=== PATIENT | female | born 1975 | race Hispanic/Latino ===

== ENCOUNTER 2024-01-17 16:57 | Emergency (ER) | payer BC ==
[~2024-01-17] VITALS: Ht 172.7 cm; Wt 136.1 kg
[2024-01-17] MEDS: ketOROlac 30MG VIAL (30MG/ML) IM ONE (17:23)
[2024-01-17] MEDS ORDERED: KETO10TA2 PO (18:14)
[2024-01-17] MEDS ORDERED: CYCL10TA16 PO (18:14)
[2024-01-17 18:23] VITALS: BP 144/78; PULSE 69; RESP 18; TEMP 97.7; O2SAT 98
== END 2024-01-17 18:25 | disposition home or self-care (01) ==
LOC: EDH 16:57
DX: M79.621 Pain in right upper arm (principal); Z79.899 Other long term (current) drug therapy; W18.39XA Other fall on same level, initial encounter; Y93.89 Activity, other specified; Y92.89 Other specified places as the place of occurrence of the external cause; Y99.8 Other external cause status
CPT/HCPCS: 99284; 73060; 96372; J1885; 29105